=== PATIENT | female | born 1995 | race Caucasian/White ===

== ENCOUNTER 2018-09-11 18:08 | Inpatient (IN) | payer OTHER, BC ==
[~2018-09-11] VITALS: Ht 162.6 cm; Wt 81.8 kg
[2018-09-11] MEDS ORDERED: FENTANYL/BUPIV./NS/PF 250 ML EPIDCONT SCH ×2 (18:20→20:15)
[2018-09-11] MEDS ORDERED: D5%-LACTATED RINGERS 1,000 ML IV SCH (18:20)
[2018-09-11] MEDS ORDERED: OXYTOCIN 30U/ 0.9% NaCL 500ML 500 ML IV ONE (18:20)
[2018-09-11] MEDS ORDERED: FENTANYL PF 500 MCG, BUPIVACAINE/PF 0.5%, 30ML 62.5 ML in SODIUM CHLORIDE 0.9% 177.5 ML EPIDCONT SCH (18:30)
[2018-09-11] MEDS ORDERED: ONDANSETRON 2MG/ML, 2ML IVPush PRN (18:30)
[2018-09-11] MEDS ORDERED: FENTANYL PF 100 MCG/2ML IVPush PRN (18:30)
[2018-09-11] MEDS ORDERED: SODIUM CITRATE/CITRIC ACID 30 ML UDC PO PRN (18:30)
[2018-09-11] MEDS ORDERED: TERBUTALINE 1 MG/ML, 1ML IVPush PRN (18:30)
[2018-09-11] MEDS ORDERED: FENTANYL PF 100 MCG/2ML IV PRN (18:30)
[2018-09-11] MEDS: LACTATED RINGERS 1,000 ML IV SCH ×4 (18:41→21:39)
[2018-09-11 18:46] VITALS: BP 126/88
[2018-09-11 18:59] LABS: BASOPHILS # (AUTO) 0.02 x10^3/uL (0-0.1); BASOPHILS % (AUTO) 0 % (0-1); EOSINOPHILS # (AUTO) 0.13 x10^3/uL (0-0.4); EOSINOPHILS % (AUTO) 1 % (1-7); LYMPHOCYTES # (AUTO) 1.98 x10^3/uL (1-3.4); LYMPHOCYTES % (AUTO) 16 % (22-44); MD NO; MEAN CORPUSCULAR HEMOGLOBIN 31.5 pg (27.0-34.8); MEAN CORPUSCULAR HGB CONC 34.1 g/dL (32.4-35.8); MEAN CORPUSCULAR VOLUME 92.5 fL (80-100); MONOCYTES # (AUTO) 0.92 x10^3/uL (0.2-0.8); MONOCYTES % (AUTO) 7 % (2-9); NEUTROPHILS # (AUTO) 9.48 x10^3/uL (1.8-6.8); NEUTROPHILS % (AUTO) 76 % (42-75); PLATELET COUNT 335 x10^3/uL (130-400); RED BLOOD COUNT 4.05 x10^6/uL (3.82-5.3); RED CELL DISTRIBUTION WIDTH 14.1 % (9.6-15.2)
[2018-09-11] MEDS ORDERED: LIDOCAINE/PF 1%, 30ML ONE ×2 (19:29)
[2018-09-11] MEDS ORDERED: OXYTOCIN 30U/ 0.9% NaCL 500ML 500 ML ONE (19:29)
[2018-09-11] MEDS ORDERED: NEWBORN KIT ONE (19:29)
[2018-09-11] MEDS ORDERED: MISOPROSTOL 200 MCG TABLET ONE (19:29)
[2018-09-11] MEDS ORDERED: BUPIVACAINE 0.25% ONE ×2 (20:00→20:07)
[2018-09-11] MEDS ORDERED: LIDOCAINE 1%-EPI 1:100K, 30ML ONE (20:00)
[2018-09-11] MEDS ORDERED: TERBUTALINE 1 MG/ML, 1ML ONE (20:26)
[2018-09-11] MEDS ORDERED: LACTATED RINGERS 1,000 ML IVBOLUS PRN (20:30)
[2018-09-11] MEDS ORDERED: EPHEDRINE 50 MG/ML, 1ML IVPush PRN (20:30)
[2018-09-11 21:14] LABS: AMPHETAMINE SCREEN, URINE Negative (Negative); BARBITURATE SCREEN, URINE Negative (Negative); BENZODIAZEPINE SCREEN, URINE Negative (Negative); CANNABINOID SCREEN, URINE Negative (Negative); COCAINE SCREEN, URINE Negative (Negative); METHADONE SCREEN, URINE Negative (Negative); OPIATE SCREEN, URINE Negative (Negative)
[2018-09-12] MEDS ORDERED: NEWBORN KIT ONE (06:27)
[2018-09-12] MEDS: LACTATED RINGERS 1,000 ML IV SCH (06:57)
[2018-09-12] MEDS: OXYTOCIN 30U/ 0.9% NaCL 500ML 500 ML IV SCH ×2 (07:20→17:20)
[2018-09-12] MEDS ORDERED: METOCLOPRAMIDE 5 MG/ML, 2ML IV PRN (07:30)
[2018-09-12] MEDS ORDERED: MISOPROSTOL 200 MCG TABLET PR PRN (07:30)
[2018-09-12] MEDS ORDERED: OXYcodone/APAP 5/325MG TABLET PO PRN ×2 (07:30)
[2018-09-12] MEDS ORDERED: METHYLERGONOVINE 0.2 MG/ML IM PRN (07:30)
[2018-09-12] MEDS ORDERED: ONDANSETRON 2MG/ML, 2ML IV PRN (07:30)
[2018-09-12] MEDS ORDERED: DIPH,PERTUSS(ACELL),TET VAC/PF NC IM-VACC PRN (07:30)
[2018-09-12] MEDS ORDERED: ACETAMINOPHEN 325 MG TABLET PO PRN (07:30)
[2018-09-12] MEDS ORDERED: RHOGAM FROM BLOOD BANK 1 NOTE EA IM/IV ONE (07:30)
[2018-09-12] MEDS ORDERED: CALCIUM CARBONATE 500 MG TAB.CHEW PO PRN (07:30)
[2018-09-12] MEDS ORDERED: MEASLES,MUMPS&RUBELLA VACC/PF 0.5 ML SQ PRN (07:30)
[2018-09-12] MEDS ORDERED: GLYCERIN ADULT SUPP PR PRN (07:30)
[2018-09-12] MEDS ORDERED: BISACODYL 10 MG SUPP PR PRN (07:30)
[2018-09-12] MEDS ORDERED: MAGNESIUM HYDROXIDE 8%, 30ML UDC PO PRN (07:30)
[2018-09-12] MEDS ORDERED: CARBOPROST TROMETHAMINE 250 MCG/ML, 1ML IM PRN (07:30)
[2018-09-12] MEDS ORDERED: OXYTOCIN 30U/ 0.9% NaCL 500ML 500 ML ONE (08:41)
[2018-09-12] MEDS: PRENATAL VIT/IRON/FA 1 EACH TABLET PO SCH ×2 (09:00→18:22)
[2018-09-12] MEDS ORDERED: IBUPROFEN 800 MG TABLET ONE (09:20)
[2018-09-12 10:50] VITALS: BP 119/72
[2018-09-12 11:20] VITALS: BP 125/73
[2018-09-12 12:10] VITALS: BP 127/80
[2018-09-12 16:20] VITALS: BP 135/82
[2018-09-12 16:27] LABS: MEAN CORPUSCULAR HEMOGLOBIN 30.8 pg (27.0-34.8); MEAN CORPUSCULAR HGB CONC 33.5 g/dL (32.4-35.8); MEAN CORPUSCULAR VOLUME 91.9 fL (80-100); MEAN PLATELET VOLUME 9.9 fL (7.4-10.4); PLATELET COUNT 256 x10^3/uL (130-400); RED BLOOD COUNT 3.67 x10^6/uL (3.82-5.3)
[2018-09-12 16:28] LABS: MD YES
[2018-09-12 16:30] LABS: <PLATELET ESTIMATE> ADEQUATE; <PLT MORPHOLOGY> NORMAL PLT MORPH; <RBC MORPHOLOGY> NORMAL; BAND#(MANUAL) 1.81 x10^3/uL; BANDS%(MANUAL) 8 % (0-7); LYMPH#(MANUAL) 0.45 x10^3/uL (1-3.4); LYMPHS% (MANUAL) 2 % (22-44); MONOS#(MANUAL) 1.58 x10^3/uL (0.3-2.7); MONOS% (MANUAL) 7 % (2-9); SEG#(MANUAL) 18.76 x10^3/uL (1.8-6.8); SEGS% (MANUAL) 83 % (42-75)
[2018-09-12] MEDS: IBUPROFEN 600 MG TABLET PO PRN (18:22)
[2018-09-12] MEDS: DOCUSATE 100 MG CAPSULE PO PRN (18:22)
[2018-09-12 21:10] VITALS: BP 107/61
[2018-09-13] VITALS (7 sets, daily range): BP systolic 108–150; BP diastolic 71–87
[2018-09-13] MEDS: ACETAMINOPHEN 325 MG TABLET PO PRN ×4 (01:40→20:28)
[2018-09-13] MEDS: DOCUSATE 100 MG CAPSULE PO PRN ×2 (01:41→20:28)
[2018-09-13] MEDS: OXYTOCIN 30U/ 0.9% NaCL 500ML 500 ML IV SCH (03:20)
[2018-09-13 06:00] LABS: MEAN CORPUSCULAR HEMOGLOBIN 31.4 pg (27.0-34.8); MEAN CORPUSCULAR HGB CONC 33.9 g/dL (32.4-35.8); MEAN CORPUSCULAR VOLUME 92.5 fL (80-100); MEAN PLATELET VOLUME 9.9 fL (7.4-10.4); PLATELET COUNT 273 x10^3/uL (130-400); RED BLOOD COUNT 3.88 x10^6/uL (3.82-5.3); RED CELL DISTRIBUTION WIDTH 14.3 % (9.6-15.2)
[2018-09-13 06:25] LABS: MD YES
[2018-09-13 06:44] LABS: BAND#(MANUAL) 2.48 x10^3/uL; BANDS%(MANUAL) 9 % (0-7); MONOS#(MANUAL) 0.83 x10^3/uL (0.3-2.7); MONOS% (MANUAL) 3 % (2-9)
[2018-09-13 06:45] LABS: LYMPH#(MANUAL) 0.55 x10^3/uL (1-3.4); LYMPHS% (MANUAL) 2 % (22-44)
[2018-09-13 06:46] LABS: SEGS% (MANUAL) 86 % (42-75)
[2018-09-13 06:47] LABS: <PLATELET ESTIMATE> ADEQUATE; <PLT MORPHOLOGY> NORMAL PLT MORPH; <RBC MORPHOLOGY> NORMAL
[2018-09-13] MEDS: PRENATAL VIT/IRON/FA 1 EACH TABLET PO SCH (08:28)
[2018-09-13] MEDS: IBUPROFEN 600 MG TABLET PO PRN (08:51)
[2018-09-13] MEDS ORDERED: CEFAZOLIN 2,000 MG in SODIUM CHLORIDE 0.9% 50 ML IV ONE (09:30)
[2018-09-13] MEDS ORDERED: CEFAZOLIN PMX 1GM/50ML 50 ML IV SCH (17:30)
[2018-09-13] MEDS ORDERED: GENTAMICIN PER PHARMACY MC PRN (21:00)
[2018-09-13] MEDS: CLINDAMYCIN PMX 600MG/50ML 50 ML IV SCH (21:44)
[2018-09-13 21:48] LABS: CULTURE INDICATED? YES; MICROSCOPIC INDICATED
[2018-09-13] MEDS ORDERED: CLINDAMYCIN 150 MG/ML, 6ML IV SCH (22:00)
[2018-09-13] MEDS ORDERED: PHARMACOKINETIC CONSULTATION MC ONE (22:00)
[2018-09-13] MEDS ORDERED: PHARMACOKINETIC MONITORING MC PRN (22:00)
[2018-09-13 22:04] LABS: MEAN CORPUSCULAR HEMOGLOBIN 31.8 pg (27.0-34.8); MEAN CORPUSCULAR HGB CONC 34.5 g/dL (32.4-35.8); MEAN CORPUSCULAR VOLUME 92.2 fL (80-100); MEAN PLATELET VOLUME 9.9 fL (7.4-10.4); PLATELET COUNT 248 x10^3/uL (130-400); RED BLOOD COUNT 3.24 x10^6/uL (3.82-5.3); RED CELL DISTRIBUTION WIDTH 14.1 % (9.6-15.2)
[2018-09-13 22:43] LABS: MD YES
[2018-09-13 22:50] LABS: <RBC MORPHOLOGY> NORMAL; BAND#(MANUAL) 1.59 x10^3/uL; BANDS%(MANUAL) 7 % (0-7); LYMPH#(MANUAL) 0.68 x10^3/uL (1-3.4); LYMPHS% (MANUAL) 3 % (22-44); MONOS#(MANUAL) 0.91 x10^3/uL (0.3-2.7); MONOS% (MANUAL) 4 % (2-9); SEGS% (MANUAL) 86 % (42-75)
[2018-09-13 22:51] LABS: <PLATELET ESTIMATE> ADEQUATE; <PLT MORPHOLOGY> NORMAL PLT MORPH
[2018-09-13] MEDS: GENTAMICIN 260 MG in SODIUM CHLORIDE 0.9% 100 ML IV SCH (22:57)
[2018-09-14] VITALS (7 sets, daily range): BP systolic 104–142; BP diastolic 68–77
[2018-09-14] MEDS: ACETAMINOPHEN 325 MG TABLET PO PRN (05:22)
[2018-09-14] MEDS: CLINDAMYCIN PMX 600MG/50ML 50 ML IV SCH ×3 (05:22→21:32)
[2018-09-14 05:54] LABS: CREATININE 0.63 mg/dL (0.55-1.02)
[2018-09-14 05:59] LABS: MEAN CORPUSCULAR HEMOGLOBIN 31.9 pg (27.0-34.8); MEAN CORPUSCULAR HGB CONC 34.7 g/dL (32.4-35.8); MEAN CORPUSCULAR VOLUME 91.8 fL (80-100); MEAN PLATELET VOLUME 9.7 fL (7.4-10.4); PLATELET COUNT 260 x10^3/uL (130-400); RED BLOOD COUNT 3.21 x10^6/uL (3.82-5.3); RED CELL DISTRIBUTION WIDTH 14.2 % (9.6-15.2)
[2018-09-14 06:35] LABS: MD YES
[2018-09-14 06:37] LABS: BAND#(MANUAL) 0.62 x10^3/uL; BANDS%(MANUAL) 3 % (0-7); EOS#(MANUAL) 0.21 x10^3/uL (0.0-0.4); EOS% (MANUAL) 1 % (1-7); LYMPH#(MANUAL) 1.44 x10^3/uL (1-3.4); LYMPHS% (MANUAL) 7 % (22-44); MONOS#(MANUAL) 1.03 x10^3/uL (0.3-2.7); MONOS% (MANUAL) 5 % (2-9); SEG#(MANUAL) 17.22 x10^3/uL (1.8-6.8); SEGS% (MANUAL) 84 % (42-75)
[2018-09-14 06:38] LABS: POLYCHROMASIA 1+
[2018-09-14 06:39] LABS: <PLATELET ESTIMATE> ADEQUATE; <PLT MORPHOLOGY> NORMAL PLT MORPH
[2018-09-14] MEDS: PRENATAL VIT/IRON/FA 1 EACH TABLET PO SCH (07:44)
[2018-09-14] MEDS: DOCUSATE 100 MG CAPSULE PO PRN (07:44)
[2018-09-14 12:40] LABS: MEAN CORPUSCULAR HEMOGLOBIN 31.4 pg (27.0-34.8); MEAN CORPUSCULAR HGB CONC 33.5 g/dL (32.4-35.8); MEAN CORPUSCULAR VOLUME 93.5 fL (80-100); MEAN PLATELET VOLUME 9.4 fL (7.4-10.4); PLATELET COUNT 300 x10^3/uL (130-400); RED CELL DISTRIBUTION WIDTH 14.2 % (9.6-15.2)
[2018-09-14 13:47] LABS: BASOPHILS # (AUTO) 0.02 x10^3/uL (0-0.1); BASOPHILS % (AUTO) 0 % (0-1); EOSINOPHILS % (AUTO) 0 % (1-7); LYMPHOCYTES # (AUTO) 1.25 x10^3/uL (1-3.4); LYMPHOCYTES % (AUTO) 7 % (22-44); MD SCAN; MONOCYTES # (AUTO) 1.23 x10^3/uL (0.2-0.8); MONOCYTES % (AUTO) 7 % (2-9); NEUTROPHILS # (AUTO) 15.41 x10^3/uL (1.8-6.8); NEUTROPHILS % (AUTO) 86 % (42-75)
[2018-09-14] MEDS: IBUPROFEN 600 MG TABLET PO PRN (15:03)
[2018-09-14] MEDS: GENTAMICIN 260 MG in SODIUM CHLORIDE 0.9% 100 ML IV SCH (22:27)
[2018-09-15] MEDS: IBUPROFEN 600 MG TABLET PO PRN ×3 (00:44→22:59)
[2018-09-15] MEDS: CLINDAMYCIN PMX 600MG/50ML 50 ML IV SCH ×3 (05:36→21:36)
[2018-09-15 07:45] VITALS: BP 110/75
[2018-09-15] MEDS: DOCUSATE 100 MG CAPSULE PO PRN ×2 (09:48→22:59)
[2018-09-15] MEDS: PRENATAL VIT/IRON/FA 1 EACH TABLET PO SCH (09:48)
[2018-09-15 12:00] VITALS: BP 117/74
[2018-09-15 16:15] VITALS: BP 119/79
[2018-09-15 20:30] VITALS: BP 131/84
[2018-09-15] MEDS: GENTAMICIN 260 MG in SODIUM CHLORIDE 0.9% 100 ML IV SCH (22:52)
[2018-09-16 00:10] VITALS: BP 116/75
[2018-09-16 04:00] VITALS: BP 117/74
[2018-09-16] MEDS: CLINDAMYCIN PMX 600MG/50ML 50 ML IV SCH (05:08)
[2018-09-16 08:45] VITALS: BP 123/81
[2018-09-16] MEDS: PRENATAL VIT/IRON/FA 1 EACH TABLET PO SCH (09:15)
[2018-09-16] MEDS: DOCUSATE 100 MG CAPSULE PO PRN (09:15)
[2018-09-16] MEDS: IBUPROFEN 600 MG TABLET PO PRN (09:15)
[2018-09-16] MEDS ORDERED: IBUP-1222 PO (10:27)
[2018-09-16] MEDS ORDERED: AMOX1TAB64 PO (10:29)
== END 2018-09-16 16:15 | disposition home or self-care (01) | DRG 806 ==
LOC: LDOP 18:08 → LDIP 18:30 → 2NW 09-12 10:25
PROVIDERS: ADMIT Obstetrics & Gynecology; ATTEND Obstetrics & Gynecology
PROC: 0KQM0ZZ Repair Perineum Muscle, Open Approach (ICD-10-PCS; principal; 2018-09-12)
PROC: 10E0XZZ Delivery of Products of Conception, External Approach (ICD-10-PCS; 2018-09-12)
PROC: 0W8NXZZ Division of Female Perineum, External Approach (ICD-10-PCS; 2018-09-12)
PROC: 3E0R3BZ Introduction of Anesthetic Agent into Spinal Canal, Percutaneous Approach (ICD-10-PCS; 2018-09-12)
PROC: 00HU33Z Insertion of Infusion Device into Spinal Canal, Percutaneous Approach (ICD-10-PCS; 2018-09-12)
DX: O69.3XX0 Labor and delivery complicated by short cord, not applicable or unspecified (principal); O86.4 Pyrexia of unknown origin following delivery; Z37.0 Single live birth; O86.12 Endometritis following delivery; O99.334 Smoking (tobacco) complicating childbirth; F17.210 Nicotine dependence, cigarettes, uncomplicated; Z3A.38 38 weeks gestation of pregnancy; O70.1 Second degree perineal laceration during delivery
CPT/HCPCS: 36415; 80170; 80307; 81001; 82565; 82803; 82962; 84520; 85025; 86850; 86900; 87040; 87077; 87086; 87186; G0378; J0690; J3010; J3490; J1580; J2590; J3105; J7050; J7120

== ENCOUNTER 2021-03-05 11:41 | Outpatient (CLI) | payer BC, OTHER ==
[~2021-03-05] VITALS: Ht 162.6 cm; Wt 78.5 kg
[~2021-03-05 11:41] MED LIST: AMOX1TAB64 PO; IBUP-1222 PO
== END 2021-03-05 13:30 | disposition home or self-care (01) ==
LOC: LDOP 11:41
PROVIDERS: ATTEND Obstetrics & Gynecology Maternal & Fetal Medicine
DX: O32.1XX0 Maternal care for breech presentation, not applicable or unspecified (principal); O26.892 Other specified pregnancy related conditions, second trimester; R10.9 Unspecified abdominal pain; Z3A.27 27 weeks gestation of pregnancy
CPT/HCPCS: 59025; 76805

== ENCOUNTER 2021-05-15 04:04 | Inpatient (IN) | payer BC ==
[~2021-05-15] VITALS: Ht 162.6 cm; Wt 79.9 kg
[2021-05-15] MEDS ORDERED: LIDOCAINE 1%, 20ML ONE (04:14)
[2021-05-15] MEDS ORDERED: NEWBORN KIT ONE (04:14)
[2021-05-15] MEDS ORDERED: OXYTOCIN 30U/ 0.9% NaCL 500ML 500 ML ONE (04:15)
[2021-05-15] MEDS ORDERED: MISOPROSTOL 200 MCG TABLET ONE (04:15)
[2021-05-15 04:26] VITALS: BP 120/71
[2021-05-15] MEDS ORDERED: CALCIUM CARBONATE 500 MG TAB.CHEW PO PRN (04:30)
[2021-05-15] MEDS ORDERED: D5%-LACTATED RINGERS 1,000 ML IV SCH (04:30)
[2021-05-15] MEDS ORDERED: ONDANSETRON 2MG/ML, 2ML IVPush PRN (04:30)
[2021-05-15] MEDS ORDERED: FENTANYL PF 100 MCG/2ML IVPush PRN (04:30)
[2021-05-15] MEDS ORDERED: TERBUTALINE 1 MG/ML, 1ML IVPush PRN (04:30)
[2021-05-15] MEDS ORDERED: FENTANYL PF 100 MCG/2ML IV PRN (04:30)
[2021-05-15] MEDS ORDERED: TERBUTALINE 1 MG/ML, 1ML SQ PRN (04:30)
[2021-05-15] MEDS: LACTATED RINGERS 1,000 ML IV SCH ×2 (04:30→05:00)
[2021-05-15 04:48] LABS: BASOPHILS % (AUTO) 1 % (0-1); EOSINOPHILS % (AUTO) 1 % (1-7); LYMPHOCYTES % (AUTO) 15 % (22-44); MEAN CORPUSCULAR HEMOGLOBIN 31.7 pg (27.0-34.8); MEAN CORPUSCULAR HGB CONC 34.6 g/dL (32.4-35.8); MEAN PLATELET VOLUME 10.3 fL (7.4-10.4); MONOCYTES % (AUTO) 7 % (2-9); NEUTROPHILS % (AUTO) 77 % (42-75); PLATELET COUNT 243 x10^3/uL (130-400); RED BLOOD COUNT 3.79 x10^6/uL (3.82-5.3); RED CELL DISTRIBUTION WIDTH 14.1 % (9.6-15.2)
[2021-05-15] MEDS ORDERED: BUPIVACAINE 0.25% ONE (04:58)
[2021-05-15] MEDS ORDERED: FENTANYL/BUPIV./NS/PF 250 ML EPIDCONT ONE (04:58)
[2021-05-15] MEDS ORDERED: EPHEDRINE 50 MG/ML, 1ML IVPush PRN (05:30)
[2021-05-15] MEDS ORDERED: LACTATED RINGERS 1,000 ML IVBOLUS PRN (05:30)
[2021-05-15] MEDS ORDERED: FENTANYL/BUPIV./NS/PF 250 ML EPIDCONT SCH (05:30)
[2021-05-15] MEDS ORDERED: LACTATED RINGERS 1,000 ML IV SCH (05:30)
[2021-05-15 06:02] LABS: AMPHETAMINE SCREEN, URINE Negative (Negative); BARBITURATE SCREEN, URINE Negative (Negative); BENZODIAZEPINE SCREEN, URINE Negative (Negative); CANNABINOID SCREEN, URINE Negative (Negative); COCAINE SCREEN, URINE Negative (Negative); METHADONE SCREEN, URINE Negative (Negative); OPIATE SCREEN, URINE Negative (Negative)
[2021-05-15] MEDS ORDERED: OXYcodone/APAP 5/325MG TABLET PO PRN (10:00)
[2021-05-15] MEDS ORDERED: OXYcodone IR 5MG TABLET PO PRN (10:00)
[2021-05-15] MEDS ORDERED: MISOPROSTOL 200 MCG TABLET PR PRN (10:00)
[2021-05-15] MEDS ORDERED: DOCUSATE 100 MG CAPSULE PO PRN (10:00)
[2021-05-15] MEDS ORDERED: SIMETHICONE 80 MG CHEW TAB PO PRN (10:00)
[2021-05-15] MEDS ORDERED: ONDANSETRON 2MG/ML, 2ML IV PRN (10:00)
[2021-05-15] MEDS ORDERED: ACETAMINOPHEN 325 MG TABLET PO PRN (10:00)
[2021-05-15] MEDS: OXYTOCIN 30U/ 0.9% NaCL 500ML 500 ML IV SCH ×2 (10:31→20:00)
[2021-05-15] MEDS: IBUPROFEN 600 MG TABLET PO PRN ×2 (10:31→21:32)
[2021-05-15 11:36] VITALS: BP 103/67
[2021-05-15 16:21] VITALS: BP 120/76
[2021-05-15 18:01] LABS: BASOPHILS % (AUTO) 0 % (0-1); EOSINOPHILS % (AUTO) 1 % (1-7); LYMPHOCYTES % (AUTO) 11 % (22-44); MEAN CORPUSCULAR HEMOGLOBIN 31.4 pg (27.0-34.8); MEAN CORPUSCULAR HGB CONC 33.8 g/dL (32.4-35.8); MEAN PLATELET VOLUME 10.3 fL (7.4-10.4); MONOCYTES % (AUTO) 6 % (2-9); NEUTROPHILS % (AUTO) 82 % (42-75); PLATELET COUNT 219 x10^3/uL (130-400); RED BLOOD COUNT 3.61 x10^6/uL (3.82-5.3); RED CELL DISTRIBUTION WIDTH 14.2 % (9.6-15.2)
[2021-05-15 20:00] VITALS: BP 117/71
[2021-05-16] VITALS: BP 114/68
[2021-05-16] MEDS ORDERED: PRENATAL VIT/IRON/FA 1 EACH TABLET PO SCH (09:00)
[2021-05-16 09:03] VITALS: BP 111/72
[2021-05-16] MEDS: IBUPROFEN 600 MG TABLET PO PRN (09:12)
== END 2021-05-16 16:00 | disposition home or self-care (01) | DRG 807 ==
LOC: LDOP 04:04 → LDIP 04:21 → 2NW 11:20
PROVIDERS: ADMIT Obstetrics & Gynecology Maternal & Fetal Medicine; ATTEND Obstetrics & Gynecology Maternal & Fetal Medicine
PROC: 10E0XZZ Delivery of Products of Conception, External Approach (ICD-10-PCS; principal; 2021-05-15)
PROC: 3E0R3BZ Introduction of Anesthetic Agent into Spinal Canal, Percutaneous Approach (ICD-10-PCS; 2021-05-15)
PROC: 00HU33Z Insertion of Infusion Device into Spinal Canal, Percutaneous Approach (ICD-10-PCS; 2021-05-15)
PROC: 0HQ9XZZ Repair Perineum Skin, External Approach (ICD-10-PCS; 2021-05-15)
DX: O69.1XX0 Labor and delivery complicated by cord around neck, with compression, not applicable or unspecified (principal); Z37.0 Single live birth; Z3A.38 38 weeks gestation of pregnancy; Z20.822 Contact with and (suspected) exposure to COVID-19; O70.0 First degree perineal laceration during delivery
CPT/HCPCS: 36415; 80307; 85025; 86592; 86850; 86900; 87635; G0378; J2590; J3010; J7120